=== PATIENT | female | born 1935 | race Two or more races ===

== ENCOUNTER 2021-04-08 16:24 | Emergency (ER) | payer OTHER ==
[~2021-04-08] VITALS: Ht 167.6 cm; Wt 68.0 kg
[2021-04-08] MEDS ORDERED: LEVO-T25 MCG PO (17:38)
[2021-04-08] MEDS ORDERED: QUETIAPINE FUMA50 MG PO (17:38)
[2021-04-08] MEDS ORDERED: MEMANTINE HCL E28 MG PO (17:38)
[2021-04-08] MEDS ORDERED: DONEPEZIL HCL10 MG PO (17:38)
[2021-04-08] MEDS ORDERED: LOSARTAN POTASS50 MG PO (17:38)
[2021-04-08] MEDS ORDERED: LATANOPROST2.5 ML OP (17:38)
[2021-04-08] MEDS ORDERED: ATORVASTATIN CA20 MG PO (17:38)
== END 2021-04-08 21:21 | disposition home or self-care (01) ==
LOC: ER 16:24
DX: S60.211A Contusion of right wrist, initial encounter (principal); S50.11XA Contusion of right forearm, initial encounter; E87.5 Hyperkalemia; G30.8 Other Alzheimer's disease; F02.80 Dementia in other diseases classified elsewhere, unspecified severity, without behavioral disturbance, psychotic disturbance, mood disturbance, and anxiety; W06.XXXA Fall from bed, initial encounter; Y93.9 Activity, unspecified; Y92.013 Bedroom of single-family (private) house as the place of occurrence of the external cause; Y99.8 Other external cause status

== ENCOUNTER → 2022-11-14 | Emergency (ER) | payer OTHER ==
[~2022-11-14] VITALS: Ht 160 cm; Wt 72.6 kg
[~2022-11-14] MED LIST: ARICEPT10 MG; ATORVASTATIN CA20 MG PO; DONEPEZIL HCL10 MG PO; LATANOPROST2.5 ML OP; LEVO-T25 MCG PO; LEVOTHYROXINE25 MCG PO; LOSARTAN POTASS50 MG PO; MEMANTINE HCL E28 MG PO; NAMENDA XR28 MG PO; QUETIAPINE FUMA50 MG PO
== END | disposition home or self-care (01) ==
LOC: ER 08:55
DX: S20.229A Contusion of unspecified back wall of thorax, initial encounter (principal); S60.212A Contusion of left wrist, initial encounter; W19.XXXA Unspecified fall, initial encounter; Y93.89 Activity, other specified; Y92.018 Other place in single-family (private) house as the place of occurrence of the external cause; Y99.9 Unspecified external cause status

== ENCOUNTER 2023-03-10 09:56 | Emergency (ER) | payer OTHER ==
[~2023-03-10] VITALS: Ht 160 cm; Wt 64.4 kg
[2023-03-10] MEDS ORDERED: LIPITOR20 MG (10:06)
[2023-03-10] MEDS ORDERED: COZAAR25 MG (10:07)
== END 2023-03-10 16:19 | disposition home or self-care (01) ==
LOC: ER 09:56
DX: R55 Syncope and collapse (principal); S00.93XA Contusion of unspecified part of head, initial encounter; S80.02XA Contusion of left knee, initial encounter; W18.30XA Fall on same level, unspecified, initial encounter; Y93.9 Activity, unspecified; Y92.9 Unspecified place or not applicable; Y99.9 Unspecified external cause status

== ENCOUNTER 2023-03-19 22:24 | Emergency (ER) | payer OTHER ==
[~2023-03-19] VITALS: Ht 157.5 cm; Wt 63.5 kg
[~2023-03-19 22:24] MED LIST changes: +COZAAR25 MG; +LIPITOR20 MG
[2023-03-20] MEDS ORDERED: MELOXICAM15 MG PO (05:19)
== END 2023-03-20 05:34 ==
LOC: ER 22:24
DX: R07.9 Chest pain, unspecified (principal); G30.0 Alzheimer's disease with early onset; F02.80 Dementia in other diseases classified elsewhere, unspecified severity, without behavioral disturbance, psychotic disturbance, mood disturbance, and anxiety; Z20.822 Contact with and (suspected) exposure to COVID-19; I10 Essential (primary) hypertension

== ENCOUNTER 2023-07-29 22:15 | Emergency (ER) | payer OTHER ==
[~2023-07-29] VITALS: Ht 167.6 cm; Wt 74.8 kg
[~2023-07-29 22:15] MED LIST changes: +MELOXICAM15 MG PO
== END 2023-07-30 02:13 | disposition home or self-care (01) ==
LOC: ER 22:16
DX: S00.03XA Contusion of scalp, initial encounter (principal); W06.XXXA Fall from bed, initial encounter; Y93.89 Activity, other specified; Y92.003 Bedroom of unspecified non-institutional (private) residence as the place of occurrence of the external cause; Y99.9 Unspecified external cause status; I10 Essential (primary) hypertension

== ENCOUNTER 2023-09-25 21:23 | Emergency (ER) | payer OTHER ==
[~2023-09-25] VITALS: Ht 172.7 cm; Wt 70.3 kg
[2023-09-25] MEDS ORDERED: SEROQUEL XR150 MG (21:41)
[2023-09-25 23:50] LABS: HEMATOCRIT 40.3 % (36.0-45.00); HEMOGLOBIN 13.8 g/dL (12.0-15.00); MEAN CELL VOLUME 94.7 fL (80.00-100.00); MEAN CORPUSCULAR HEMOGLOBIN 32.4 pg (27.00-32.0); MEAN CORPUSCULAR HGB CONC 34.2 g/dl (32.0-36.0); PLATELET COUNT 155 K/uL (150-450); RED BLOOD COUNT 4.25 M/uL (4.00-6.00); RED CELL DISTRIBUTION WIDTH 13.9 % (11.5-14.5)
[2023-09-25 23:53] LABS: INR 1.01; PROTHROMBIN TIME 10.6 SECONDS (9.0-11.5)
[2023-09-26 01:03] LABS: PH,URINE 7.5 (5.0-8.0); URINE APPEARANCE Clear; URINE BILIRRUBIN Negative (NEGATIVE); URINE COLOR Yellow; URINE GLUCOSE Negative (NEGATIVE); URINE LEUKOCYTE Trace; URINE NITRATE Negative; URINE PROTEIN Trace (NEGATIVE); URINE UROBILINOGEN 0.2 E.U./dl
[2023-09-26 01:07] LABS: URINE BACTERIA 17.6 uL (0.0-1933); URINE EPITHELIAL CELLS 3.7 uL (0.0-38.8); URINE RBC 80.3 uL (0.0-20.8); URINE WBC 11.4 uL (0.0-23.2)
[2023-09-26 01:15] LABS: CALCIUM 10.1 mg/dL (8.5-10.1); CREATININE SERUM 1.11 mg/dL (0.55-1.02); GFR 46.72; POTASSIUM 3.51 mEq/L (3.5-5.1)
[2023-09-26 01:30] LABS: URINE CRYSTALS FEW /HPF; URINE MUCUS SCANT
[2023-09-26 01:31] LABS: URINE BLOOD TRACE
[2023-09-26 01:33] LABS: URINE YEAST NEGATIVE /hpf
[2023-09-26] MEDS ORDERED: APETIGEN P12.5 MG/15 PO (04:40)
== END 2023-09-26 05:15 ==
LOC: ER 21:23
PROVIDERS: General Practice
DX: R55 Syncope and collapse (principal); E11.9 Type 2 diabetes mellitus without complications; E78.00 Pure hypercholesterolemia, unspecified; E03.9 Hypothyroidism, unspecified; I10 Essential (primary) hypertension

== ENCOUNTER 2023-10-11 14:32 | Emergency (ER) | payer OTHER ==
[~2023-10-11] VITALS: Ht 167.6 cm; Wt 59.0 kg
[~2023-10-11 14:32] MED LIST changes: +APETIGEN P12.5 MG/15 PO; +SEROQUEL XR150 MG
[2023-10-11] MEDS ORDERED: GLUMETZA500 MG PO (14:43)
[2023-10-11] MEDS ORDERED: NAMENDA10 MG PO (14:44)
[2023-10-11] MEDS ORDERED: CEFTRIAXONE SODIUM 2,000 MG VIAL IV ONE (16:00)
== END 2023-10-11 17:09 | disposition home or self-care (01) ==
LOC: ER 14:33
DX: N39.0 Urinary tract infection, site not specified (principal); G30.8 Other Alzheimer's disease; F02.80 Dementia in other diseases classified elsewhere, unspecified severity, without behavioral disturbance, psychotic disturbance, mood disturbance, and anxiety; I10 Essential (primary) hypertension; E03.9 Hypothyroidism, unspecified; E11.9 Type 2 diabetes mellitus without complications; Z79.84 Long term (current) use of oral hypoglycemic drugs
CPT/HCPCS: 96365; 99282; J0696

== ENCOUNTER 2023-10-13 21:59 | Emergency (ER) | payer OTHER ==
[~2023-10-13] VITALS: Ht 162.6 cm; Wt 59.0 kg
[~2023-10-13 21:59] MED LIST changes: +GLUMETZA500 MG PO; +NAMENDA10 MG PO
== END 2023-10-14 02:54 ==
LOC: ER 21:59
DX: S00.93XA Contusion of unspecified part of head, initial encounter (principal); W18.39XA Other fall on same level, initial encounter; Y93.89 Activity, other specified; Y92.018 Other place in single-family (private) house as the place of occurrence of the external cause; Y99.9 Unspecified external cause status; E11.9 Type 2 diabetes mellitus without complications; Z79.84 Long term (current) use of oral hypoglycemic drugs; I10 Essential (primary) hypertension; G30.9 Alzheimer's disease, unspecified; F02.80 Dementia in other diseases classified elsewhere, unspecified severity, without behavioral disturbance, psychotic disturbance, mood disturbance, and anxiety

== ENCOUNTER 2023-10-21 03:37 | Emergency (ER) | payer OTHER ==
[~2023-10-21] VITALS: Ht 167.6 cm; Wt 59.0 kg
[2023-10-21] MEDS ORDERED: GUAIFENESIN/DEXTROMETHORPHAN 100 MG/5 ML ML PO STA (05:28)
[2023-10-21] MEDS ORDERED: ZYNCOF 20-400120 ML PO (06:50)
== END 2023-10-21 07:11 ==
LOC: ER 03:38
DX: R05.9 Cough, unspecified (principal); Z20.822 Contact with and (suspected) exposure to COVID-19; I10 Essential (primary) hypertension; E11.9 Type 2 diabetes mellitus without complications; Z79.84 Long term (current) use of oral hypoglycemic drugs

== ENCOUNTER 2023-10-24 22:20 | Emergency (ER) | payer OTHER ==
[~2023-10-24] VITALS: Ht 167.6 cm; Wt 59.0 kg
[~2023-10-24 22:20] MED LIST changes: +ZYNCOF 20-400120 ML PO
[2023-10-25] MEDS ORDERED: HYDROCODONE/CHLORPHEN P-STIREX 5 ML ML PO STA (02:01)
[2023-10-25 02:24] LABS: HEMATOCRIT 39.6 % (36.0-45.00); HEMOGLOBIN 13.4 g/dL (12.0-15.00); MEAN CELL VOLUME 95.6 fL (80.00-100.00); MEAN CORPUSCULAR HEMOGLOBIN 32.4 pg (27.00-32.0); MEAN CORPUSCULAR HGB CONC 33.9 g/dl (32.0-36.0); PLATELET COUNT 137 K/uL (150-450); RED BLOOD COUNT 4.14 M/uL (4.00-6.00); RED CELL DISTRIBUTION WIDTH 14.1 % (11.5-14.5)
== END 2023-10-25 04:38 | disposition home or self-care (01) ==
LOC: ER 22:20
DX: R53.81 Other malaise (principal); R05.9 Cough, unspecified; J06.9 Acute upper respiratory infection, unspecified; Z20.822 Contact with and (suspected) exposure to COVID-19

== ENCOUNTER 2023-11-03 13:55 | Emergency (ER) | payer OTHER ==
[~2023-11-03] VITALS: Ht 162.6 cm; Wt 59.0 kg
[2023-11-03] MEDS ORDERED: 0.9 % SODIUM CHLORIDE 1,000 ML IV STA (15:10)
[2023-11-03] MEDS ORDERED: ONDANSETRON HCL 2 MG/ML VIAL IV STA (15:11)
[2023-11-03] MEDS ORDERED: FAMOtidine 10 MG/ML (4ML VIAL) IV STA (15:12)
[2023-11-03 15:48] LABS: HEMATOCRIT 43.4 % (36.0-45.00); HEMOGLOBIN 15.3 g/dL (12.0-15.00); MEAN CORPUSCULAR HEMOGLOBIN 33.4 pg (27.00-32.0); MEAN CORPUSCULAR HGB CONC 35.1 g/dl (32.0-36.0); PLATELET COUNT 213 K/uL (150-450); RED BLOOD COUNT 4.57 M/uL (4.00-6.00); RED CELL DISTRIBUTION WIDTH 13.5 % (11.5-14.5)
[2023-11-03 16:45] LABS: URINE APPEARANCE Clear; URINE BACTERIA 16.3 uL (0.0-1933); URINE BILIRRUBIN Negative (NEGATIVE); URINE BLOOD Negative; URINE COLOR Yellow; URINE EPITHELIAL CELLS 5.4 uL (0.0-38.8); URINE GLUCOSE Negative (NEGATIVE); URINE LEUKOCYTE Trace; URINE NITRATE Negative; URINE PROTEIN Trace (NEGATIVE); URINE RBC 5.8 uL (0.0-20.8); URINE WBC 9.7 uL (0.0-23.2)
[2023-11-03 16:48] LABS: ALBUMIN 3.6 gm/dL (3.4-5.0); BILIRUBIN TOTAL 0.54 mg/dL (0.3-1.2); BILIRUBIN,CONJUGATED 0.12 mg/dL (0.0-0.2); BILIRUBIN,UNCONJUGATED 0.42 mg/dL (0.0-0.6); CALCIUM 10.3 mg/dL (8.5-10.1); CREATININE SERUM 1.01 mg/dL (0.55-1.02); GFR 51.97; POTASSIUM 3.82 mEq/L (3.5-5.1); TOTAL PROTEIN 8.1 gm/dL (6.4-8.2)
[2023-11-03] MEDS ORDERED: PIPERACILLIN/TAZOBACTAM SODIUM 3.375 GM in DEXTROSE 5 % IN WATER 100 ML IV ONE (19:00)
== END 2023-11-03 19:28 | disposition home or self-care (01) ==
LOC: ER 13:55
PROVIDERS: General Practice
DX: K52.9 Noninfective gastroenteritis and colitis, unspecified (principal); I10 Essential (primary) hypertension; G30.9 Alzheimer's disease, unspecified; F02.80 Dementia in other diseases classified elsewhere, unspecified severity, without behavioral disturbance, psychotic disturbance, mood disturbance, and anxiety; N28.1 Cyst of kidney, acquired; N20.0 Calculus of kidney
CPT/HCPCS: 36415; 74176; 93005; 96365; 99284; J2405; J3490

== ENCOUNTER 2023-11-06 17:57 | Inpatient (IN) | payer OTHER ==
[~2023-11-06] VITALS: Ht 167.6 cm; Wt 59.0 kg
[2023-11-06] MEDS ORDERED: LEVOTHYROXINE25 MCG (18:04)
[2023-11-06] MEDS ORDERED: COZAAR50 MG (18:05)
[2023-11-06] MEDS ORDERED: MOBIC7.5 MG (18:05)
[2023-11-06] MEDS ORDERED: CLARITIN10 M1 (18:05)
[2023-11-06] MEDS ORDERED: LIORESAL I50 MCG/1 M (18:05)
[2023-11-06] MEDS ORDERED: ANTIVERT25 M2 (18:05)
[2023-11-06] MEDS ORDERED: ZYRTEC10 M3 (18:06)
[2023-11-06] MEDS ORDERED: SEROQUEL25 MG (18:06)
[2023-11-06] MEDS ORDERED: NAMENDA XR28 MG (18:06)
[2023-11-06] MEDS ORDERED: FAMOTIDINE/PF 20 MG in 0.9 % SODIUM CHLORIDE 8 ML IV PUSH STA (18:18)
[2023-11-06] MEDS ORDERED: 0.9 % SODIUM CHLORIDE 1,000 ML IV SCH ×2 (18:30→19:45)
[2023-11-06] MEDS ORDERED: METRONIDAZOLE/SODIUM CHLORIDE 500 MG/100 ML PIGGYBACK IV ONE (18:30)
[2023-11-06] MEDS ORDERED: CIPROFLOXACIN IN 5 % DEXTROSE 400 MG/200 ML PIGGYBAG IV ONE (18:30)
[2023-11-06 18:45] LABS: HEMATOCRIT 42.3 % (36.0-45.00); HEMOGLOBIN 14.5 g/dL (12.0-15.00); MEAN CELL VOLUME 94.9 fL (80.00-100.00); MEAN CORPUSCULAR HEMOGLOBIN 32.5 pg (27.00-32.0); MEAN CORPUSCULAR HGB CONC 34.2 g/dl (32.0-36.0); PLATELET COUNT 195 K/uL (150-450); RED BLOOD COUNT 4.46 M/uL (4.00-6.00)
[2023-11-06 19:10] LABS: ALBUMIN 3.5 gm/dL (3.4-5.0); BILIRUBIN TOTAL 0.66 mg/dL (0.3-1.2); CALCIUM 10.1 mg/dL (8.5-10.1); CREATININE SERUM 1.1 mg/dL (0.55-1.02); GFR 47.09; GLOBULINA 4.7 G/DL (2.4-3.5); POTASSIUM 4.34 mEq/L (3.5-5.1); TOTAL PROTEIN 8.2 gm/dL (6.4-8.2)
[2023-11-06] MEDS ORDERED: DONEPEZIL HCL 10 MG TABLET PO SCH (19:43)
[2023-11-06] MEDS ORDERED: ONDANSETRON HCL 4 MG in 0.9 % SODIUM CHLORIDE 50 ML IV PRN (19:45)
[2023-11-06] MEDS ORDERED: ACETAMINOPHEN 500 MG GEL..CAP PO PRN (19:45)
[2023-11-06] MEDS ORDERED: QUETIAPINE FUMARATE 25 MG TABLET PO SCH (20:19)
[2023-11-07] MEDS ORDERED: PIPERACILLIN/TAZOBACTAM SODIUM 3.375 GM in DEXTROSE 5 % IN WATER 100 ML IV SCH
[2023-11-07 03:15] LABS: INR 1.08; PROTHROMBIN TIME 11.3 SECONDS (9.0-11.5)
[2023-11-07] MEDS ORDERED: LEVOTHYROXINE SODIUM 25 MCG TABLET PO SCH (06:00)
[2023-11-07] MEDS ORDERED: LOSARTAN POTASSIUM 50 MG TABLET PO SCH (09:00)
[2023-11-07] MEDS ORDERED: FAMOTIDINE/PF 20 MG in 0.9 % SODIUM CHLORIDE 8 ML IV PUSH SCH (09:00)
[2023-11-07] MEDS ORDERED: MEMANTINE HCL 10 MG TABLET PO SCH (09:00)
[2023-11-07 11:45] LABS: PH,URINE 7.5 (5.0-8.0); URINE APPEARANCE Clear; URINE BILIRRUBIN Negative (NEGATIVE); URINE COLOR Yellow; URINE GLUCOSE Negative (NEGATIVE); URINE LEUKOCYTE Negative; URINE NITRATE Negative; URINE PROTEIN Negative (NEGATIVE); URINE UROBILINOGEN 0.2 E.U./dl
[2023-11-07 11:50] LABS: URINE EPITHELIAL CELLS 1.8 uL (0.0-38.8); URINE RBC 15.3 uL (0.0-20.8)
[2023-11-07 12:02] LABS: URINE BACTERIA 3.7 uL (0.0-1933); URINE BLOOD TRACES
[2023-11-07 15:34] LABS: CALCIUM 9.4 mg/dL (8.5-10.1); CHOL HDL RATIO 4.2 (0-5.0); CREATININE SERUM 0.92 mg/dL (0.55-1.02); GFR 57.88; POTASSIUM 3.74 mEq/L (3.5-5.1)
[2023-11-07] MEDS ORDERED: AA 4.25%/CAL/LYTES/DEXT 5% 1,000 ML PERIFERAL SCH (17:00)
[2023-11-08 08:14] LABS: HEMOGLOBIN 13.7 g/dL (12.0-15.00); MEAN CELL VOLUME 94.3 fL (80.00-100.00); MEAN CORPUSCULAR HEMOGLOBIN 32.3 pg (27.00-32.0); MEAN CORPUSCULAR HGB CONC 34.2 g/dl (32.0-36.0); PLATELET COUNT 192 K/uL (150-450); RED BLOOD COUNT 4.24 M/uL (4.00-6.00); RED CELL DISTRIBUTION WIDTH 13.4 % (11.5-14.5)
[2023-11-08 08:42] LABS: ALBUMIN 3.3 gm/dL (3.4-5.0); BILIRUBIN TOTAL 1.15 mg/dL (0.3-1.2); CALCIUM 9.6 mg/dL (8.5-10.1); CREATININE SERUM 1.03 mg/dL (0.55-1.02); GFR 50.81; GLOBULINA 3.8 G/DL (2.4-3.5); MAGNESIUM 2.2 mg/dL (1.8-2.4); PHOSPHOROUS 3.5 mg/dL (2.5-4.9); POTASSIUM 4.25 mEq/L (3.5-5.1); TOTAL PROTEIN 7.1 gm/dL (6.4-8.2)
[2023-11-08 08:43] LABS: C-REACTIVE PROTEIN 0.57 MG/DL (0.00-0.29)
[2023-11-11] MEDS ORDERED: SODIUM CHLORIDE 0.45 % 1,000 ML IV SCH (17:30)
[2023-11-12 06:21] LABS: HEMATOCRIT 36.7 % (36.0-45.00); HEMOGLOBIN 12.8 g/dL (12.0-15.00); MEAN CELL VOLUME 95.1 fL (80.00-100.00); MEAN CORPUSCULAR HEMOGLOBIN 33.2 pg (27.00-32.0); MEAN CORPUSCULAR HGB CONC 34.9 g/dl (32.0-36.0); PLATELET COUNT 163 K/uL (150-450); RED BLOOD COUNT 3.86 M/uL (4.00-6.00); RED CELL DISTRIBUTION WIDTH 13.7 % (11.5-14.5)
[2023-11-12 06:59] LABS: CALCIUM 8.9 mg/dL (8.5-10.1); CREATININE SERUM 0.77 mg/dL (0.55-1.02); GFR 71.08; POTASSIUM 4.28 mEq/L (3.5-5.1)
[2023-11-12] MEDS ORDERED: 0.9 % SODIUM CHLORIDE 10 ML VIAL IJ ONE (08:10)
[2023-11-12] MEDS ORDERED: LOSARTAN/HYDROCHLOROTHIAZIDE 1 TAB TABLET PO SCH (09:00)
[2023-11-14] MEDS ORDERED: FAMOTIDINE/PF 20 MG/2 ML VIAL ONE (23:59)
== END 2023-11-13 15:56 | disposition home or self-care (01) | DRG 395 ==
LOC: ER 17:57 → SEC-K 20:03 → MEDI 11-07 16:28
PROVIDERS: General Practice; Internal Medicine Infectious Disease; ADMIT Specialist; ATTEND Specialist
PROC: 02HV33Z Insertion of Infusion Device into Superior Vena Cava, Percutaneous Approach (ICD-10-PCS; 2023-11-07)
PROC: 3E0436Z Introduction of Nutritional Substance into Central Vein, Percutaneous Approach (ICD-10-PCS; 2023-11-07)
PROC: BB24ZZZ Computerized Tomography (CT Scan) of Bilateral Lungs (ICD-10-PCS; principal; 2023-11-11)
DX: K62.89 Other specified diseases of anus and rectum (principal); B96.20 Unspecified Escherichia coli [E. coli] as the cause of diseases classified elsewhere; E86.0 Dehydration; R05.9 Cough, unspecified; I10 Essential (primary) hypertension; E11.9 Type 2 diabetes mellitus without complications; G30.8 Other Alzheimer's disease; F02.80 Dementia in other diseases classified elsewhere, unspecified severity, without behavioral disturbance, psychotic disturbance, mood disturbance, and anxiety; Z74.01 Bed confinement status; Z79.84 Long term (current) use of oral hypoglycemic drugs

== ENCOUNTER → 2024-02-20 | Emergency (ER) | payer OTHER ==
[~2024-02-20] VITALS: Ht 152.4 cm; Wt 52.2 kg
[~2024-02-20] MED LIST changes: +0.9 % SODIUM CHLORIDE 1,000 ML IV SCH; +ANTIVERT25 M2; +CHILDREN'S100 MG/5 M PO; +CLARITIN10 M1; +COZAAR50 MG; +LEVOTHYROXINE25 MCG; +LIORESAL I50 MCG/1 M; +MOBIC7.5 MG; +NAMENDA XR28 MG; +SEROQUEL25 MG; +ZYRTEC10 M3
[2024-02-20 11:24] LABS: HEMATOCRIT 38.5 % (36.0-45.00); HEMOGLOBIN 13.1 g/dL (12.0-15.00); MEAN CELL VOLUME 94.2 fL (80.00-100.00); MEAN CORPUSCULAR HEMOGLOBIN 32.2 pg (27.00-32.0); MEAN CORPUSCULAR HGB CONC 34.1 g/dl (32.0-36.0); PLATELET COUNT 159 K/uL (150-450); RED BLOOD COUNT 4.08 M/uL (4.00-6.00); RED CELL DISTRIBUTION WIDTH 14.2 % (11.5-14.5)
[2024-02-20 11:35] LABS: URINE APPEARANCE Cloudy; URINE BILIRRUBIN Negative (NEGATIVE); URINE BLOOD Negative; URINE COLOR Dark Yellow; URINE GLUCOSE Negative (NEGATIVE); URINE LEUKOCYTE Trace; URINE NITRATE Negative; URINE PROTEIN 30 (NEGATIVE)
[2024-02-20 11:39] LABS: URINE BACTERIA 32.7 uL (0.0-1933); URINE EPITHELIAL CELLS 13.4 uL (0.0-38.8); URINE RBC 10.2 uL (0.0-20.8); URINE WBC 21.9 uL (0.0-23.2)
[2024-02-20 11:57] LABS: ALBUMIN 3.5 gm/dL (3.4-5.0); BILIRUBIN TOTAL 0.6 mg/dL (0.3-1.2); CALCIUM 10.2 mg/dL (8.5-10.1); CREATININE SERUM 1.12 mg/dL (0.55-1.02); GFR 46.12; GLOBULINA 4.1 G/DL (2.4-3.5); POTASSIUM 4.41 mEq/L (3.5-5.1); TOTAL PROTEIN 7.6 gm/dL (6.4-8.2)
[2024-02-20 12:32] LABS: URINE CRYSTALS FEW /HPF; URINE MUCUS SCANT
== END | disposition home or self-care (01) ==
LOC: ER 09:47
PROVIDERS: General Practice
DX: R55 Syncope and collapse (principal); I11.9 Hypertensive heart disease without heart failure; Z20.822 Contact with and (suspected) exposure to COVID-19
CPT/HCPCS: 36415; 93005; 96365; 99283; J7030

== ENCOUNTER 2024-03-08 18:34 | Emergency (ER) | payer OTHER ==
[~2024-03-08] VITALS: Ht 154.9 cm; Wt 59.0 kg
[~2024-03-08 18:34] MED LIST changes: -0.9 % SODIUM CHLORIDE 1,000 ML IV SCH
[2024-03-08] MEDS ORDERED: CEFTRIAXONE SODIUM 1,000 MG VIAL IV ONE (20:00)
[2024-03-08 20:10] LABS: HEMATOCRIT 41.7 % (36.0-45.00); HEMOGLOBIN 14.4 g/dL (12.0-15.00); MEAN CELL VOLUME 92.4 fL (80.00-100.00); MEAN CORPUSCULAR HGB CONC 34.6 g/dl (32.0-36.0); PLATELET COUNT 163 K/uL (150-450); RED BLOOD COUNT 4.52 M/uL (4.00-6.00); RED CELL DISTRIBUTION WIDTH 14.2 % (11.5-14.5)
[2024-03-08 20:32] LABS: CALCIUM 10.2 mg/dL (8.5-10.1); CREATININE SERUM 0.85 mg/dL (0.55-1.02); GFR 63.41; POTASSIUM 4.35 mEq/L (3.5-5.1)
[2024-03-08] MEDS ORDERED: DIPHENHYDRAMINE HCL 50 MG/ML VIAL 1ML IV ONE (21:45)
[2024-03-09] MEDS ORDERED: DIPHENHYDRAMINE HCL 50 MG/ML VIAL 1ML IV STA (00:16)
== END 2024-03-09 03:34 ==
LOC: ER 18:35
PROVIDERS: General Practice
DX: S00.93XA Contusion of unspecified part of head, initial encounter (principal); S20.229A Contusion of unspecified back wall of thorax, initial encounter; S60.222A Contusion of left hand, initial encounter; S60.221A Contusion of right hand, initial encounter; W19.XXXA Unspecified fall, initial encounter; Y93.9 Activity, unspecified; Y92.018 Other place in single-family (private) house as the place of occurrence of the external cause; Y99.9 Unspecified external cause status; G30.9 Alzheimer's disease, unspecified; F02.80 Dementia in other diseases classified elsewhere, unspecified severity, without behavioral disturbance, psychotic disturbance, mood disturbance, and anxiety
CPT/HCPCS: 36415; 70450; 72125; 96365; 96366; 99284; J0696; J1200

== ENCOUNTER 2024-06-14 09:21 | Inpatient (IN) | payer OTHER ==
[~2024-06-14] VITALS: Ht 152.4 cm; Wt 59.0 kg
--- NOTE | 2024-06-14 09:41 | NUR ---
SE RECIBE PTE ALERTA EN PERSONA EN AMBULANCIA EN COMPANIA DE PARAMEDICOS Y FAMILIAR.FAMILIAR REFIERE PTE PRESENTA 2 EPISODIO DE VOMITOS Y DIARREA EL HILARIA DE MIKE.SE AMA S/V Y SE UBICA.
[2024-06-14] MEDS ORDERED: 0.9 % SODIUM CHLORIDE 1,000 ML IV STA (10:53)
--- NOTE | 2024-06-14 11:29 | NUR ---
SE RECIBE PTE ALERTA EN PERSONA EN COMPANIA DE FAMILIAR.SE AMA MUESTRAS DE LABORATORIO USANDO MEDIDAS ASEPTICAS.PTE CANALIZADA DE AMBULANCIA CON ANGIO #20 EN LUISA MOON.SE REALIZA CACATERIZACION USANDO MEDIDAS ASEPTICAS Y ESTERILES.SE ORIENTA PTE Y FAMILIAR SOBRE OBJETIVO DE [place] MEDICO.
[2024-06-14 11:30] LABS: HEMATOCRIT 43.4 % (36.0-45.00); HEMOGLOBIN 14.9 g/dL (12.0-15.00); MEAN CELL VOLUME 95.9 fL (80.00-100.00); MEAN CORPUSCULAR HGB CONC 34.4 g/dl (32.0-36.0); PLATELET COUNT 165 K/uL (150-450); RED BLOOD COUNT 4.52 M/uL (4.00-6.00); RED CELL DISTRIBUTION WIDTH 13.6 % (11.5-14.5)
[2024-06-14 11:54] LABS: PH,URINE 5.5 (5.0-8.0); URINE APPEARANCE Clear; URINE BILIRRUBIN Negative (NEGATIVE); URINE BLOOD Negative; URINE COLOR Dark Yellow; URINE GLUCOSE Negative (NEGATIVE); URINE KETONE Trace (NEGATIVE); URINE LEUKOCYTE Trace; URINE NITRATE Negative; URINE PROTEIN Trace (NEGATIVE)
[2024-06-14 11:58] LABS: URINE BACTERIA 35.2 uL (0.0-1933); URINE CAST 4.27 uL (0.0-1.40); URINE EPITHELIAL CELLS 15.9 uL (0.0-38.8); URINE RBC 42.4 uL (0.0-20.8)
[2024-06-14 11:58] LABS: ALBUMIN 3.5 gm/dL (3.4-5.0); BILIRUBIN TOTAL 0.53 mg/dL (0.3-1.2); BILIRUBIN,CONJUGATED 0.13 mg/dL (0.0-0.2); BILIRUBIN,UNCONJUGATED 0.4 mg/dL (0.0-0.6); CALCIUM 9.8 mg/dL (8.5-10.1); CREATININE SERUM 1.66 mg/dL (0.55-1.02); GFR 29.29; POTASSIUM 5.37 mEq/L (3.5-5.1); TOTAL PROTEIN 7.5 gm/dL (6.4-8.2)
[2024-06-14] MEDS ORDERED: PIPERACILLIN/TAZOBACTAM SODIUM 3.375 GM VIAL IV STA (12:27)
[2024-06-14 12:28] LABS: URINE CRYSTALS FEW /HPF
--- NOTE | 2024-06-14 13:29 | NUR ---
SE INSERTA SONDA URINARIA USANDO MEDIDAS ASEPTICAS Y ESTERILES #16.SE INSERTA TUBO NASOGASTRICO EN RACHID PO.SE RESTRINGUE PACIENTE POR 2 EN EXTREMIDADES SUPERIORES.PTE TOLERANDO AL MOMENTO,SE ORIENTA A FAMILIAR SOBRE PROCEDIMIENTOS ANTES MENCIONADOS.
[2024-06-14] MEDS ORDERED: DEXTROSE 5 % AND 0.9 % NACL 1,000 ML IV SCH (13:45)
[2024-06-14] MEDS ORDERED: FAMOTIDINE/PF 20 MG/10 ML SYRINGE IV SCH (13:48)
[2024-06-14] MEDS ORDERED: FAMOTIDINE/PF 20 MG/2 ML VIAL IV SCH (13:59)
[2024-06-14] MEDS ORDERED: DEXTROSE 50 % IN WATER 0.5 G/ML DISP.SYRIN IV PRN (14:00)
[2024-06-14] MEDS ORDERED: INSULIN LISPRO 1,000 UNIT/10 ML UNITS SUBCUTANEO PRN (14:00)
[2024-06-14] MEDS ORDERED: hydrALAZINE HCL 20 MG VIAL IV PRN (14:00)
[2024-06-14] MEDS ORDERED: ONDANSETRON HCL 2 MG/ML VIAL IV PRN (14:00)
[2024-06-14] MEDS ORDERED: AMINO ACIDS 4.25 %/DEXTROSE 5% 1,000 ML PERIFERAL SCH (17:00)
[2024-06-14] MEDS ORDERED: ENOXAPARIN SODIUM 30 MG/0.3 ML SYRINGE SUBCUTANEO SCH (17:00)
[2024-06-14 17:02] VITALS: BP 158/84; O2SAT 100
[2024-06-14 17:10] LABS: INR 1.04; PARTIAL THROMBOPLASTIN TIME 26.7 SECONDS (22.0-34.0); PROTHROMBIN TIME 11.3 SECONDS (9.0-11.5)
[2024-06-14 17:52] VITALS: BP 158/84
[2024-06-14 18:32] VITALS: O2SAT 99
[2024-06-14 19:05] VITALS: BP 164/99; O2SAT 95
[2024-06-14] MEDS ORDERED: PIPERACILLIN/TAZOBACTAM SODIUM 2.25 GM in 0.9 % SODIUM CHLORIDE 50 ML IV SCH (21:00)
[2024-06-14 21:14] VITALS: O2SAT 98
[2024-06-15] VITALS (9 sets, daily range): BP systolic 113–183; BP diastolic 66–69; O2SAT 95–99
[2024-06-15] MEDS ORDERED: MORPHINE SULFATE 2 MG/ML CARTRIDGE IV ONE (03:00)
[2024-06-15 06:19] LABS: HEMATOCRIT 41.3 % (36.0-45.00); HEMOGLOBIN 14.2 g/dL (12.0-15.00); MEAN CELL VOLUME 94.5 fL (80.00-100.00); MEAN CORPUSCULAR HEMOGLOBIN 32.5 pg (27.00-32.0); MEAN CORPUSCULAR HGB CONC 34.4 g/dl (32.0-36.0); PLATELET COUNT 154 K/uL (150-450); RED BLOOD COUNT 4.37 M/uL (4.00-6.00); RED CELL DISTRIBUTION WIDTH 14.4 % (11.5-14.5)
[2024-06-15 06:52] LABS: ERYTHROCYTE SEDIMENTATION RATE 31 mm/hr
[2024-06-15 07:56] LABS: BILIRUBIN TOTAL 0.55 mg/dL (0.3-1.2); CREATININE SERUM 1.72 mg/dL (0.55-1.02); GFR 28.11; GLOBULINA 3.3 G/DL (2.4-3.5); POTASSIUM 4.64 mEq/L (3.5-5.1); TOTAL PROTEIN 6.3 gm/dL (6.4-8.2); TSH 4.61 uIU/mL (0.358-3.74)
[2024-06-15 08:04] LABS: C-REACTIVE PROTEIN 3.13 MG/DL (0.00-0.29)
[2024-06-15] MEDS ORDERED: PIPERACILLIN/TAZOBACTAM SODIUM 2.25 GM in 0.9 % SODIUM CHLORIDE 50 ML IV SCH (14:00)
[2024-06-15] MEDS ORDERED: SODIUM CHLORIDE 0.45 % 1,000 ML IV SCH (22:30)
[2024-06-16] VITALS (10 sets, daily range): BP systolic 156–168; BP diastolic 66–81; O2SAT 95–98
[2024-06-16 06:53] LABS: HEMATOCRIT 38.1 % (36.0-45.00); HEMOGLOBIN 12.8 g/dL (12.0-15.00); MEAN CELL VOLUME 96.2 fL (80.00-100.00); MEAN CORPUSCULAR HEMOGLOBIN 32.5 pg (27.00-32.0); MEAN CORPUSCULAR HGB CONC 33.7 g/dl (32.0-36.0); RED BLOOD COUNT 3.96 M/uL (4.00-6.00); RED CELL DISTRIBUTION WIDTH 13.9 % (11.5-14.5)
[2024-06-16 07:11] LABS: PLATELET COUNT 105 K/uL (150-450)
[2024-06-16 07:20] LABS: CALCIUM 8.4 mg/dL (8.5-10.1); CREATININE SERUM 1.07 mg/dL (0.55-1.02); GFR 48.62; MAGNESIUM 2.2 mg/dL (1.8-2.4); POTASSIUM 3.85 mEq/L (3.5-5.1)
[2024-06-16 08:25] LABS: PHOSPHOROUS 1.8 mg/dL (2.5-4.9)
[2024-06-16] MEDS ORDERED: DEXTROSE 5 % IN WATER 1,000 ML IV SCH (10:00)
[2024-06-16] MEDS ORDERED: POTASSIUM PHOS,M-BASIC-D-BASIC 3 MM/ML VIAL IV NR (10:00)
[2024-06-16] MEDS ORDERED: PIPERACILLIN/TAZOBACTAM SODIUM 3.375 GM in DEXTROSE 5 % IN WATER 100 ML IV SCH (20:00)
[2024-06-17] VITALS (9 sets, daily range): BP systolic 148–160; BP diastolic 70–77; O2SAT 93–97
[2024-06-17 07:28] LABS: HEMATOCRIT 37.7 % (36.0-45.00); HEMOGLOBIN 12.8 g/dL (12.0-15.00); MEAN CELL VOLUME 94.7 fL (80.00-100.00); MEAN CORPUSCULAR HEMOGLOBIN 32.2 pg (27.00-32.0); PLATELET COUNT 101 K/uL (150-450); RED BLOOD COUNT 3.98 M/uL (4.00-6.00); RED CELL DISTRIBUTION WIDTH 13.6 % (11.5-14.5)
[2024-06-17 08:06] LABS: CALCIUM 8.6 mg/dL (8.5-10.1); CREATININE SERUM 0.76 mg/dL (0.55-1.02); GFR 72.16; POTASSIUM 3.52 mEq/L (3.5-5.1)
[2024-06-17 08:13] LABS: MANUAL PLATELET COUNT 292
[2024-06-17 08:39] LABS: PHOSPHOROUS 1.8 mg/dL (2.5-4.9)
[2024-06-17] MEDS ORDERED: POTASSIUM PHOS,M-BASIC-D-BASIC 3 MM/ML VIAL IV NR (10:30)
[2024-06-18] VITALS (9 sets, daily range): BP systolic 122–135; BP diastolic 56–67; O2SAT 90–96
[2024-06-18] MEDS ORDERED: DIATRIZOATE MEGLUMINE, SODIUM 30 ML BOTTLE PO ONE (06:45)
[2024-06-18 08:24] LABS: HEMATOCRIT 34.3 % (36.0-45.00); HEMOGLOBIN 11.9 g/dL (12.0-15.00); MEAN CELL VOLUME 93.4 fL (80.00-100.00); MEAN CORPUSCULAR HEMOGLOBIN 32.3 pg (27.00-32.0); MEAN CORPUSCULAR HGB CONC 34.6 g/dl (32.0-36.0); RED BLOOD COUNT 3.68 M/uL (4.00-6.00); RED CELL DISTRIBUTION WIDTH 13.6 % (11.5-14.5)
[2024-06-18 08:26] LABS: PLATELET COUNT 102 K/uL (150-450)
[2024-06-18 08:47] LABS: ALBUMIN 2.4 gm/dL (3.4-5.0); BILIRUBIN TOTAL 0.89 mg/dL (0.3-1.2); CALCIUM 8.3 mg/dL (8.5-10.1); CREATININE SERUM 0.8 mg/dL (0.55-1.02); GFR 68.01; MAGNESIUM 1.7 mg/dL (1.8-2.4); PHOSPHOROUS 2.1 mg/dL (2.5-4.9); POTASSIUM 3.06 mEq/L (3.5-5.1); TOTAL PROTEIN 5.4 gm/dL (6.4-8.2)
[2024-06-18] MEDS ORDERED: LEVOTHYROXINE SODIUM 100MCG/ML REDILUIDO IV SCH (09:00)
[2024-06-18] MEDS ORDERED: POTASSIUM PHOS,M-BASIC-D-BASIC 9 MM in 0.9 % SODIUM CHLORIDE 250 ML IV NR (14:00)
[2024-06-18] MEDS ORDERED: POTASSIUM CHLORIDE IN WATER 100 ML IV SCH (16:00)
[2024-06-18] MEDS ORDERED: ALBUTEROL SULFATE 3 ML/2.5 MG AMPUL.NEB IH SCH (17:00)
[2024-06-18 22:33] LABS: ABG PH 7.449 (7.35-7.45); ABG PO2 76.6 mmHg (80-100); ABG pCO2 33.7 mmHg (35-45); SaO2 95.8 %
[2024-06-18 22:34] LABS: BASE EXCESS -0.4 mmol/l; BICARBONATE 22.9 mmol/l (23-25); Tco2 23.9 mmol/l; allen test SATISFACTORY; o2 32 %; puncture site RADIAL RIGHT
[2024-06-19 00:59] VITALS: BP 125/79; O2SAT 93
[2024-06-19] MEDS ORDERED: LORazepam 2 MG/ML VIAL IV ONE (01:30)
[2024-06-19 09:40] VITALS: BP 128/71; O2SAT 98
[2024-06-19 10:03] VITALS: O2SAT 97
[2024-06-19 11:45] LABS: HEMATOCRIT 31.9 % (36.0-45.00); MEAN CELL VOLUME 94.7 fL (80.00-100.00); MEAN CORPUSCULAR HEMOGLOBIN 32.8 pg (27.00-32.0); MEAN CORPUSCULAR HGB CONC 34.6 g/dl (32.0-36.0); RED BLOOD COUNT 3.37 M/uL (4.00-6.00); RED CELL DISTRIBUTION WIDTH 13.1 % (11.5-14.5)
[2024-06-19 12:09] LABS: ALBUMIN 2.2 gm/dL (3.4-5.0); BILIRUBIN TOTAL 1.01 mg/dL (0.3-1.2); CALCIUM 8.2 mg/dL (8.5-10.1); CREATININE SERUM 0.98 mg/dL (0.55-1.02); GFR 53.81; GLOBULINA 2.9 G/DL (2.4-3.5); POTASSIUM 3.76 mEq/L (3.5-5.1); TOTAL PROTEIN 5.1 gm/dL (6.4-8.2)
[2024-06-19 12:12] LABS: PLATELET COUNT 114 K/uL (150-450)
[2024-06-19 13:47] LABS: COL EPI 137 SECONDS (82-175)
[2024-06-19 14:00] LABS: PLT IN CITRATE 102 K/uL (150-450)
[2024-06-19 14:07] VITALS: O2SAT 97
[2024-06-19] MEDS ORDERED: CEFAZOLIN SODIUM 1,000 MG VIAL IV NR (17:45)
[2024-06-19] MEDS ORDERED: BUPIVACAINE HCL 30 ML VIAL IJ ONE (18:00)
[2024-06-19] MEDS ORDERED: LIDOCAINE HCL 1% 20 ML VIAL IJ ONE (18:00)
[2024-06-19 21:35] VITALS: BP 128/76; O2SAT 96
[2024-06-19] MEDS ORDERED: GABAPENTIN 300 MG CAPSULE PO SCH (21:56)
[2024-06-19] MEDS ORDERED: ACETAMINOPHEN 500 MG GEL..CAP PO SCH (21:57)
[2024-06-19] MEDS ORDERED: MORPHINE SULFATE 4 MG/ML CARTRIDGE IV PRN (22:00)
[2024-06-20] VITALS (9 sets, daily range): BP systolic 108–136; BP diastolic 52–71; O2SAT 96–100
[2024-06-20] MEDS ORDERED: ENOXAPARIN SODIUM 40 MG/0.4 ML SYRINGE SUBCUTANEO SCH (09:00)
[2024-06-20 13:59] LABS: HEMOGLOBIN 11.5 g/dL (12.0-15.00); MEAN CELL VOLUME 93.8 fL (80.00-100.00); MEAN CORPUSCULAR HEMOGLOBIN 32.7 pg (27.00-32.0); MEAN CORPUSCULAR HGB CONC 34.9 g/dl (32.0-36.0); PLATELET COUNT 162 K/uL (150-450); RED BLOOD COUNT 3.52 M/uL (4.00-6.00); RED CELL DISTRIBUTION WIDTH 13.6 % (11.5-14.5)
[2024-06-20 14:23] LABS: BILIRUBIN TOTAL 1.1 mg/dL (0.3-1.2); CREATININE SERUM 1.25 mg/dL (0.55-1.02); GFR 40.63; GLOBULINA 2.8 G/DL (2.4-3.5); MAGNESIUM 1.6 mg/dL (1.8-2.4); POTASSIUM 3.71 mEq/L (3.5-5.1); TOTAL PROTEIN 4.8 gm/dL (6.4-8.2)
[2024-06-21] VITALS (7 sets, daily range): BP systolic 107–110; BP diastolic 64–70; O2SAT 97–100
[2024-06-21] MEDS ORDERED: AA 4.25%/CAL/LYTES/DEXT 5% 1,000 ML PERIFERAL STA (12:55)
[2024-06-21] MEDS ORDERED: 0.9 % SODIUM CHLORIDE 1,000 ML IV SCH (13:00)
[2024-06-21] MEDS ORDERED: MAGNESIUM SULFATE/D5W 100 ML IV NR (14:00)
[2024-06-22] VITALS (10 sets, daily range): BP systolic 102–139; BP diastolic 48–83; O2SAT 95–100
[2024-06-22 13:49] LABS: HEMATOCRIT 28.2 % (36.0-45.00); HEMOGLOBIN 9.7 g/dL (12.0-15.00); MEAN CELL VOLUME 93.7 fL (80.00-100.00); MEAN CORPUSCULAR HEMOGLOBIN 32.4 pg (27.00-32.0); MEAN CORPUSCULAR HGB CONC 34.5 g/dl (32.0-36.0); PLATELET COUNT 254 K/uL (150-450); RED BLOOD COUNT 3.01 M/uL (4.00-6.00); RED CELL DISTRIBUTION WIDTH 13.9 % (11.5-14.5)
[2024-06-22 14:08] LABS: INR 1.17; PARTIAL THROMBOPLASTIN TIME 37.6 SECONDS (22.0-34.0); PROTHROMBIN TIME 12.6 SECONDS (9.0-11.5)
[2024-06-22 14:46] LABS: ALBUMIN 1.9 gm/dL (3.4-5.0); BILIRUBIN TOTAL 0.45 mg/dL (0.3-1.2); BILIRUBIN,CONJUGATED 0.14 mg/dL (0.0-0.2); BILIRUBIN,UNCONJUGATED 0.31 mg/dL (0.0-0.6); CALCIUM 8.5 mg/dL (8.5-10.1); CHOL HDL RATIO 4.7 (0-5.0); CREATININE SERUM 0.83 mg/dL (0.55-1.02); GFR 65.18; GLOBULINA 3.2 G/DL (2.4-3.5); MAGNESIUM 2.4 mg/dL (1.8-2.4); POTASSIUM 3.31 mEq/L (3.5-5.1); TOTAL PROTEIN 5.1 gm/dL (6.4-8.2)
[2024-06-22] MEDS ORDERED: MEROPENEM 500 MG/VIAL VIAL IV SCH (17:00)
[2024-06-22 18:34] LABS: UREA CLEARANCE 25.1 ML/MIN
[2024-06-22] MEDS ORDERED: VANCOMYCIN HCL 1,000 MG VIAL IV SCH (21:00)
[2024-06-22 21:51] LABS: URINE APPEARANCE Clear; URINE BILIRRUBIN Negative (NEGATIVE); URINE COLOR Yellow; URINE GLUCOSE Negative (NEGATIVE); URINE KETONE Trace (NEGATIVE); URINE LEUKOCYTE Negative; URINE NITRATE Negative; URINE UROBILINOGEN 0.2 E.U./dl
[2024-06-22 21:54] LABS: URINE BACTERIA 18.8 uL (0.0-1933); URINE EPITHELIAL CELLS 30.7 uL (0.0-38.8); URINE RBC 63.6 uL (0.0-20.8); URINE WBC 12.9 uL (0.0-23.2)
[2024-06-22 22:06] LABS: URINE BLOOD TRACE; URINE EPITHELIAL CELLS 0-4 /HPF; URINE PROTEIN 100 (NEGATIVE)
[2024-06-23] VITALS (10 sets, daily range): BP systolic 113–137; BP diastolic 54–78; O2SAT 90–100
[2024-06-23] MEDS ORDERED: POTASSIUM CHLORIDE 20MEQ/100ML H2O PB IV NR (10:45)
[2024-06-23] MEDS ORDERED: POTASSIUM CHLORIDE IN WATER 100 ML IV STA (16:49)
[2024-06-23] MEDS ORDERED: SOD FERRIC GLUC COMPLX/SUCROSE 62.5 MG in 0.9 % SODIUM CHLORIDE 50 ML IV SCH (16:51)
[2024-06-23] MEDS ORDERED: AA 4.25%/CAL/LYTES/DEXT 5% 1,000 ML PERIFERAL SCH (17:00)
[2024-06-23] MEDS ORDERED: RINGERS SOLUTION,LACTATED 1,000 ML IV STA (17:01)
[2024-06-23] MEDS ORDERED: FAT EMULSIONS 250 ML IV SCH (21:00)
[2024-06-24] VITALS (8 sets, daily range): BP systolic 100–164; BP diastolic 63–66; O2SAT 90–100
[2024-06-24 05:15] LABS: ALBUMIN 1.5 gm/dL (3.4-5.0); BILIRUBIN TOTAL 0.2 mg/dL (0.3-1.2); CREATININE SERUM 0.48 mg/dL (0.55-1.02); GFR 122.63; GLOBULINA 2.9 G/DL (2.4-3.5); HEMATOCRIT 28.2 % (36.0-45.00); HEMOGLOBIN 9.9 g/dL (12.0-15.00); MEAN CELL VOLUME 94.6 fL (80.00-100.00); MEAN CORPUSCULAR HEMOGLOBIN 33.1 pg (27.00-32.0); PLATELET COUNT 315 K/uL (150-450); POTASSIUM 3.89 mEq/L (3.5-5.1); RED BLOOD COUNT 2.98 M/uL (4.00-6.00); RED CELL DISTRIBUTION WIDTH 13.8 % (11.5-14.5); TOTAL PROTEIN 4.4 gm/dL (6.4-8.2)
[2024-06-25] VITALS (9 sets, daily range): BP systolic 133–192; BP diastolic 80–103; O2SAT 95–100
[2024-06-26] VITALS (10 sets, daily range): BP systolic 160–196; BP diastolic 70–102; O2SAT 90–100
[2024-06-26] MEDS ORDERED: LOSARTAN/HYDROCHLOROTHIAZIDE 1 UDTAB TABLET PO SCH (16:10)
[2024-06-27] VITALS (9 sets, daily range): BP systolic 90–169; BP diastolic 57–87; O2SAT 96–100
[2024-06-28] VITALS (9 sets, daily range): BP systolic 132–145; BP diastolic 65–85; O2SAT 92–100
[2024-06-28 07:04] LABS: INR 1.03; PARTIAL THROMBOPLASTIN TIME 22.2 SECONDS (22.0-34.0); PROTHROMBIN TIME 11.2 SECONDS (9.0-11.5)
[2024-06-28 08:05] LABS: HEMATOCRIT 31.8 % (36.0-45.00); HEMOGLOBIN 11.3 g/dL (12.0-15.00); MEAN CELL VOLUME 94.3 fL (80.00-100.00); MEAN CORPUSCULAR HEMOGLOBIN 33.6 pg (27.00-32.0); MEAN CORPUSCULAR HGB CONC 35.7 g/dl (32.0-36.0); RED BLOOD COUNT 3.37 M/uL (4.00-6.00); RED CELL DISTRIBUTION WIDTH 13.9 % (11.5-14.5)
[2024-06-28 08:30] LABS: PLATELET COUNT 338 K/uL (150-450)
[2024-06-28] MEDS ORDERED: AMINO ACIDS 4.25 %/DEXTROSE 5% 1,000 ML PERIFERAL SCH (17:00)
[2024-06-29 00:10] VITALS: O2SAT 99
[2024-06-29 02:29] VITALS: BP 146/68; O2SAT 98
[2024-06-29 06:09] VITALS: O2SAT 92
[2024-06-29 06:54] LABS: HEMATOCRIT 29.6 % (36.0-45.00); HEMOGLOBIN 10.3 g/dL (12.0-15.00); MEAN CELL VOLUME 94.9 fL (80.00-100.00); MEAN CORPUSCULAR HGB CONC 34.7 g/dl (32.0-36.0); PLATELET COUNT 385 K/uL (150-450); RED BLOOD COUNT 3.11 M/uL (4.00-6.00); RED CELL DISTRIBUTION WIDTH 13.9 % (11.5-14.5)
[2024-06-29 07:12] LABS: INR 1.04; PARTIAL THROMBOPLASTIN TIME 31.1 SECONDS (22.0-34.0); PROTHROMBIN TIME 11.3 SECONDS (9.0-11.5)
[2024-06-29 07:23] LABS: BILIRUBIN TOTAL 0.28 mg/dL (0.3-1.2); BILIRUBIN,CONJUGATED 0.1 mg/dL (0.0-0.2); BILIRUBIN,UNCONJUGATED 0.18 mg/dL (0.0-0.6); CALCIUM 8.6 mg/dL (8.5-10.1); CHOL HDL RATIO 6.5 (0-5.0); CREATININE SERUM 0.52 mg/dL (0.55-1.02); GFR 111.81; GLOBULINA 3.1 G/DL (2.4-3.5); MAGNESIUM 2.3 mg/dL (1.8-2.4); POTASSIUM 5.02 mEq/L (3.5-5.1); TOTAL PROTEIN 5.1 gm/dL (6.4-8.2)
[2024-06-29 09:47] VITALS: O2SAT 98
[2024-06-29 10:23] LABS: UREA CLEARANCE 30.3 ML/MIN
[2024-06-29 11:00] VITALS: BP 139/62; O2SAT 97
[2024-06-29] MEDS ORDERED: CEFAZOLIN SODIUM 1,000 MG VIAL IV SCH (18:45)
[2024-06-29 23:16] VITALS: BP 150/80; O2SAT 97
[2024-06-30 00:21] VITALS: BP 156/72; O2SAT 95
[2024-06-30 09:26] VITALS: BP 148/55; O2SAT 95
[2024-06-30 16:44] VITALS: BP 134/73
[2024-07-01 01:28] VITALS: BP 127/69; O2SAT 95
[2024-07-01 09:04] VITALS: BP 121/54
[2024-07-01 17:04] VITALS: BP 146/90; O2SAT 98
[2024-07-02 02:39] VITALS: BP 126/75; O2SAT 95
[2024-07-02] MEDS ORDERED: LEVOTHYROXINE SODIUM 25 MCG TABLET PO SCH (06:00)
[2024-07-02 08:35] VITALS: BP 121/67; O2SAT 92
[2024-07-02 18:15] VITALS: BP 116/70; O2SAT 97
[2024-07-03 02:36] VITALS: BP 101/51; O2SAT 95
[2024-07-03 06:28] VITALS: BP 127/54; O2SAT 96
[2024-07-03 08:05] VITALS: BP 109/67; O2SAT 96
[2024-07-03] MEDS ORDERED: SODIUM CHLORIDE 0.45 % 1,000 ML IV SCH (13:15)
[2024-07-03 17:47] VITALS: BP 123/56
[2024-07-04 01:57] VITALS: BP 125/70; O2SAT 96
[2024-07-04 08:25] LABS: HEMATOCRIT 29.9 % (36.0-45.00); HEMOGLOBIN 10.1 g/dL (12.0-15.00); MEAN CELL VOLUME 94.6 fL (80.00-100.00); MEAN CORPUSCULAR HEMOGLOBIN 31.9 pg (27.00-32.0); MEAN CORPUSCULAR HGB CONC 33.7 g/dl (32.0-36.0); PLATELET COUNT 372 K/uL (150-450); RED BLOOD COUNT 3.16 M/uL (4.00-6.00); RED CELL DISTRIBUTION WIDTH 13.6 % (11.5-14.5)
[2024-07-04 08:34] LABS: ALBUMIN 2.4 gm/dL (3.4-5.0); BILIRUBIN TOTAL 0.32 mg/dL (0.3-1.2); CALCIUM 8.8 mg/dL (8.5-10.1); CREATININE SERUM 0.7 mg/dL (0.55-1.02); GFR 79.34; GLOBULINA 3.4 G/DL (2.4-3.5); POTASSIUM 4.61 mEq/L (3.5-5.1); TOTAL PROTEIN 5.8 gm/dL (6.4-8.2)
[2024-07-04 10:21] VITALS: BP 115/72; O2SAT 99
[2024-07-04] MEDS ORDERED: AMINO ACIDS/PROTEIN HYDROLYS 30 ML BLIST.PACK PO SCH (17:00)
[2024-07-04 18:25] VITALS: BP 135/77
[2024-07-05 01:00] VITALS: BP 129/73; O2SAT 96
[2024-07-05 08:19] VITALS: BP 137/66; O2SAT 97
[2024-07-05 19:12] VITALS: BP 11/62
[2024-07-05 19:25] VITALS: BP 116/62
[2024-07-06 01:22] VITALS: BP 111/64; O2SAT 95
[2024-07-06 10:32] VITALS: BP 11/55; O2SAT 93
== END 2024-07-06 14:59 | disposition home or self-care (01) | DRG 853 ==
LOC: ER 09:21 → MEDI 14:27
PROVIDERS: General Practice; Internal Medicine Geriatric Medicine; Internal Medicine Infectious Disease; Student in an Organized Health Care Education/Training Program; ADMIT Specialist; ATTEND Specialist
PROC: 4A12X4Z Monitoring of Cardiac Electrical Activity, External Approach (ICD-10-PCS; 2024-06-14)
PROC: BW21ZZZ Computerized Tomography (CT Scan) of Abdomen and Pelvis (ICD-10-PCS; 2024-06-14)
PROC: 0DH68UZ Insertion of Feeding Device into Stomach, Via Natural or Artificial Opening Endoscopic (ICD-10-PCS; 2024-06-14)
PROC: 02HV33Z Insertion of Infusion Device into Superior Vena Cava, Percutaneous Approach (ICD-10-PCS; 2024-06-15)
PROC: BW21YZZ Computerized Tomography (CT Scan) of Abdomen and Pelvis using Other Contrast (ICD-10-PCS; 2024-06-18)
PROC: 3E0F7GC Introduction of Other Therapeutic Substance into Respiratory Tract, Via Natural or Artificial Opening (ICD-10-PCS; 2024-06-18)
PROC: 0DT80ZZ Resection of Small Intestine, Open Approach (ICD-10-PCS; 2024-06-19)
PROC: 0W9G3ZZ Drainage of Peritoneal Cavity, Percutaneous Approach (ICD-10-PCS; 2024-06-19)
PROC: 0DNW0ZZ Release Peritoneum, Open Approach (ICD-10-PCS; principal; 2024-06-19 15:15)
DX: A41.9 Sepsis, unspecified organism (principal); K55.021 Focal (segmental) acute infarction of small intestine; K56.2 Volvulus; E87.0 Hyperosmolality and hypernatremia; N17.8 Other acute kidney failure; J90 Pleural effusion, not elsewhere classified; J98.11 Atelectasis; K31.0 Acute dilatation of stomach; E86.0 Dehydration; E11.649 Type 2 diabetes mellitus with hypoglycemia without coma; D69.6 Thrombocytopenia, unspecified; I10 Essential (primary) hypertension; E03.8 Other specified hypothyroidism; G30.9 Alzheimer's disease, unspecified; F02.80 Dementia in other diseases classified elsewhere, unspecified severity, without behavioral disturbance, psychotic disturbance, mood disturbance, and anxiety; E78.00 Pure hypercholesterolemia, unspecified; Z79.4 Long term (current) use of insulin